=== PATIENT | female | born 1950 | race Caucasian/White ===

== ENCOUNTER 2024-03-18 09:16 | Observation (INO) ==
--- NOTE | 2024-01-25 12:32 | PAT Medication Instructions ---
Medication Instructions Date of Service January 25, 2024 Home Medications apixaban 5 mg tablet (Eliquis) 5 mg PO BID calcium carbonate 600 mg PO QAM inulin 2 gram chewable tablet (Fiber Gummies) 0 g PO DAILY levothyroxine 88 mcg tablet 88 mcg PO QAM paroxetine HCl 30 mg tablet 30 mg PO QAM MEDICATION INSTRUCTIONS: ASK your prescriber and surgeon apixaban 5 mg tablet (Eliquis) 5 mg PO BID (for spinal anesthesia: will need to hold Eliquis/apixaban at least 72 hours prior to surgery) DO NOT take the morning of surgery calcium carbonate 600 mg PO QAM inulin 2 gram chewable tablet (Fiber Gummies) 0 g PO DAILY Take morning of surgery With a small sip of water, OTHERWISE NOTHING TO EAT OR DRINK AFTER MIDNIGHT: levothyroxine 88 mcg tablet 88 mcg PO QAM paroxetine HCl 30 mg tablet 30 mg PO QAM Other Notes If you have any questions please call us at [phone] or [phone] or [phone] or [phone]
--- NOTE | 2024-02-11 10:31 | Anesthesiology Consultation ---
Date of Service February 11, 2024 Assessment & Plan (1) Encounter for pre-operative examination: - Infectious disease screening: Per assessment on 02/11/24: No known recent infectious disease contacts or current infectious disease symptoms. - Outpatient joint assessment: Pt currently scheduled for inpatient pathway. If surgeon requests review for outpatient joint pathway, patient is not recommended candidate for outpatient joint program from anesthesia standpoint based on available information. - Pulmonary note (01/08/24): "Received a request for this pt to have a total knee replacement by Dr Ibarra and if holding her Eliquis for 3 days [address] is sufficient[address] Dr Hernandes reviewed Dr Ibarra's note and the pt's chart and verbally said she is cleared and to hold the Eliquis 3 days prior to surgery and restart the day after." Chart Review Chart Review: Acceptable Risk for Surgery and Patient seen in Pre Admission Testing Teaching & Discussion Pre-Anesthesia Teaching/Discussion Notes: Instructed NPO after midnight before surgery,except medications with 15 cc of water. Medication instructions provided according to the PAT guidelines. History Surgery Operation Date: 03/11/24 10:20 Proposed Procedures p Left Total Knee Arthroplasty - Julio Ibarra, DO Height/Weight Height: 5 ft 3 in Weight: 85.7 kg Allergies Allergy/AdvReac Type Severity Reaction Status Date / Time No Known Drug Allergies Allergy Unknown NONE Verified 01/25/24 10:41 Medications Home Medications Medication Instructions Recorded Confirmed Last Taken apixaban 5 mg tablet (Eliquis) 5 mg PO BID 01/25/24 01/25/24 Unknown calcium carbonate 600 mg PO QAM 01/25/24 01/25/24 Unknown inulin 2 gram chewable tablet 0 g PO DAILY 01/25/24 01/25/24 Unknown (Fiber Gummies) levothyroxine 88 mcg tablet 88 mcg PO QAM 01/25/24 01/25/24 Unknown paroxetine HCl 30 mg tablet 30 mg PO QAM 01/25/24 01/25/24 Unknown Past Medical History Medical History Anxiety High cholesterol Per records, patient denies History of pulmonary embolism (04/2023) Taking Eliquis Hypothyroid Obesity Osteoarthritis Exercise / Class Metabolic Activity II 4-5 Yardwork/Stairs/Walk up hill (one FS: No CP, no SOB) Past Family History Family History Other Heart disease Past Surgical History Surgical History History of colonoscopy History of tubal ligation Past Anesthesia History No Hx of Anesthesia Complications and No Family Hx of Anesthesia Complications History of PONV No Hx of PONV and No Hx of Motion Sickness Social History Smoking Status: Never smoker Do You Dip or Chew Tobacco: No Hx Alcohol Use: No Hx Substance Use: No substance use type: does not use Review of Systems Patient denies chest pain, shortness of breath, dyspnea on exertion, fever, chills, cough, wheezing. Physical Exam Vital Signs BP 124/74 P 73 TEMP 97.7 SP02 95%RA RESP 18 Physical Full cervical extension range of motion. Full TMJ range of motion. TMD 3 finger breaths Mallampati Score 1 Dentition: intact, + crown Lungs: clear throughout to auscultation Cardiac: regular rate and rhythm, no murmurs noted Spine: normal Carotid arteries: negative bruit Extremities: trace non-pitting LE edema Lab Results Anesthesia Preop Results Results Anesthesia Widget: WBC 5.76 K/ul (4.8-10.8) 02/11/24 Hgb 13.0 g/dl (12.0-16.0) 02/11/24 Hct 39.6 % (37.0-47.0) 02/11/24 Plt 204 K/uL (130-400) 02/11/24 Na 139 mmol/L (136-145) 02/11/24 K 4.2 mmol/L (3.5-5.1) 02/11/24 Cl 108 mmol/L (98-107) H 02/11/24 CO2 27 mmol/L (21-32) 02/11/24 BUN 20 mg/dl (6-23) 02/11/24 Creat 0.76 mg/dl (0.6-1.2) 02/11/24 Glucose Level 87 mg/dl (70-99(Fasting)) 02/11/24 PT 10.8 Seconds (9.0-12.0) 02/11/24 PTT 26 Seconds (21-31) 02/11/24 INR 1.0 (0.9-1.1) 02/11/24 Blood Type A Positive 02/11/24 Antibody Screen NEGATIVE 02/11/24 Testing Electrocardiogram Date: 02/11/24 NSR at 69bpm. LAD. Low voltage QRS. NS ST/TWA. Chest X-Ray Date: 02/11/24 FINDINGS: No lines and tubes are seen. The cardiomediastinal silhouette is no rmal. The lungs are clear. No evidence of pleural effusion or pneumothorax. IMPRESSION: No acute chest disease. Echocardiogram Date: 11/18/23 LVEF 55-59%. LV wall motion is normal. Grade 1 diastolic dysfunction. Mild AV sclerosis. Mild MR/TR. Normal right atrial pressure of 3 mmHg. Estimated PASP 30 mmHg.
--- NOTE | 2024-03-10 07:22 | History & Physical Report ---
Date of Service March 10, 2024 Assessment & Plan (1) Osteoarthritis of left knee: We will proceed with a left total knee arthroplasty. Postoperatively she will be started on Eliquis for DVT prophylaxis and kept overnight in the hospital for postop medical management. She plans to use Exablox upon discharge. History of Present Illness Chief Complaint: Osteoarthritis left knee. Primary Care Provider: Self, Referred Georgiana is a pleasant 73-year-old female who has been dealing with chronic increasing left knee pain. She has been seeing one of my partners. Initial x- rays from a year and half ago did show some mild medial compartmental arthritis. She then had an MRI in March 2023, which shows some meniscal tearing. She has been trying conservative treatment. Unfortunately, the conservative treatments are no longer helping. Follow-up x-rays have shown worsening medial compartment arthritis of the left knee. After failing conservative treatment, she has elected proceed with a left total knee arthroplasty. Allergies Allergy/AdvReac Type Severity Reaction Status Date / Time No Known Drug Allergies Allergy Unknown NONE Verified 01/25/24 10:41 Home Medications Medication Instructions Recorded Confirmed Type apixaban 5 mg tablet (Eliquis) 5 mg PO BID 01/25/24 01/25/24 History calcium carbonate 600 mg PO QAM 01/25/24 01/25/24 History inulin 2 gram chewable tablet 0 g PO DAILY 01/25/24 01/25/24 History (Fiber Gummies) levothyroxine 88 mcg tablet 88 mcg PO QAM 01/25/24 01/25/24 History paroxetine HCl 30 mg tablet 30 mg PO QAM 01/25/24 01/25/24 History Past Med/Surg History Problem List (Updated 03/10/24 @ 07:21 by Julio Ibarra DO) Osteoarthritis of left knee Encounter for pre-operative examination Medical History Obesity High cholesterol Per records, patient denies History of pulmonary embolism (04/2023) Taking Eliquis Hypothyroid Anxiety Osteoarthritis Surgical History History of tubal ligation History of colonoscopy Family History Other Heart disease Social History Smoking Status: Never smoker Do You Dip or Chew Tobacco: No; Hx Alcohol Use: No Hx Substance Use: No Preferred Language: Citizen Of [place] Communication Ability: Effective Nuisance Animal Damage Control Agent Required: No Beliefs That Will Affect Care: None Current Living Situation: Spouse Current Living Situation Comment: and dogs Feels Safe at Home: Yes Assistive Devices: Glasses Review of Systems All systems reviewed & are unremarkable except as noted in HPI & below. Physical Exam Physical examination of the left knee shows a slight varus deformity. Tenderness palpation of the distal medial femoral condyle and over the medial joint line.. Constitutional WD/WN, vitals as above Eyes PERRL, conjunctivae normal, anicteric sclerae ENMT external ear and nose normal, oropharynx normal Neck trachea midline, no thyromegaly Respiratory normal respiratory effort Cardiovascular RRR, no murmur, no edema Gastrointestinal (Abdomen) normal bowel sounds, soft, nontender, no hepatosplenomegaly Psychiatric A+Ox3, euthymic affect Results & Data Results & Data Laboratory Results . Diagnostic Findings X-rays of the left knee show medial compartment arthritis with joint space narrowing osteophyte formation and near [id number] tubulation.. PG Care Time/CCT Total # of Minutes Spent Total Time Spent with Patient: Total time spent is greater than 50% in coordination of care (as documented) at patient's floor/unit and/or counseling patient: Coding Level of Care Code None Diagnoses Osteoarthritis of left knee M17.12
--- NOTE | 2024-03-16 16:35 | History & Physical Report ---
Date of Service March 16, 2024 Assessment & Plan (1) Osteoarthritis of left knee: We will proceed with a left total knee arthroplasty. Postoperatively she will be started on Eliquis for DVT prophylaxis and kept overnight in the hospital for postop medical management. She plans to use CardKill upon discharge. History of Present Illness Chief Complaint: Osteoarthritis left knee. Primary Care Provider: Self, Referred Georgiana is a pleasant 73-year-old female who has been dealing with chronic increasing left knee pain. She has been seeing one of my partners. Initial x- rays from a year and half ago did show some mild medial compartmental arthritis. She then had an MRI in March 2023, which shows some meniscal tearing. She has been trying conservative treatment. Unfortunately, the conservative treatments are no longer helping. X-rays have shown worsening osteoarthritis of the left knee. After failing conservative treatment, she has elected to proceed with a left total knee arthroplasty. Allergies Allergy/AdvReac Type Severity Reaction Status Date / Time No Known Drug Allergies Allergy Unknown NONE Verified 01/25/24 10:41 Home Medications Medication Instructions Recorded Confirmed Type apixaban 5 mg tablet (Eliquis) 5 mg PO BID 01/25/24 01/25/24 History calcium carbonate 600 mg PO QAM 01/25/24 01/25/24 History inulin 2 gram chewable tablet 0 g PO DAILY 01/25/24 01/25/24 History (Fiber Gummies) levothyroxine 88 mcg tablet 88 mcg PO QAM 01/25/24 01/25/24 History paroxetine HCl 30 mg tablet 30 mg PO QAM 01/25/24 01/25/24 History Past Med/Surg History Problem List Osteoarthritis of left knee Medical History Obesity High cholesterol Per records, patient denies History of pulmonary embolism (04/2023) Taking Eliquis Hypothyroid Anxiety Osteoarthritis Surgical History History of tubal ligation History of colonoscopy Family History Other Heart disease Social History Smoking Status: Never smoker Do You Dip or Chew Tobacco: No; Hx Alcohol Use: No Hx Substance Use: No Preferred Language: [place] Communication Ability: Effective Topper Packer Required: No Beliefs That Will Affect Care: None Current Living Situation: Spouse Current Living Situation Comment: and dogs Feels Safe at Home: Yes Assistive Devices: Glasses Review of Systems All systems reviewed & are unremarkable except as noted in HPI & below. Physical Exam On physical examination left knee, there is tenderness palpation of the distal medial femoral condyle there is no effusion. There is a slight varus deformity.. Constitutional WD/WN, vitals as above Eyes PERRL, conjunctivae normal, anicteric sclerae ENMT external ear and nose normal, oropharynx normal Neck trachea midline, no thyromegaly Respiratory normal respiratory effort Cardiovascular RRR, no murmur, no edema Gastrointestinal (Abdomen) normal bowel sounds, soft, nontender, no hepatosplenomegaly Psychiatric A+Ox3, euthymic affect Results & Data Results & Data Laboratory Results . Diagnostic Findings X-rays of the left knee show advanced osteoarthritis with joint space narrowing, osteophyte formation, and [id number] articulation. PG Care Time/CCT Total # of Minutes Spent Total Time Spent with Patient: Total time spent is greater than 50% in coordination of care (as documented) at patient's floor/unit and/or counseling patient: Coding Level of Care Code None Diagnoses Osteoarthritis of left knee M17.12
[~2024-03-18 09:16] MED LIST: ACETAMINOPHEN 500 MG TAB PO SCH; FAMOTIDINE 20 MG TAB PO SCH; GABAPENTIN 300 MG CAP PO SCH; LR 500ML BOLUS, THEN 15ML/HR IV SCH; LR 60ML/HR IV SCH; ROPIV 0.5% 246mg, Ketorolac 30mg, EPINEPHrine 0.5mg in NSS INFIL SCH; ROPIVACAINE 0.5% 5 MG/ML 30 ML VIAL ONE; TRANEXAMIC ACID 1,000 MG **IV Intra-op IV SCH; TRANEXAMIC ACID 1,000 MG **IV Pre-op IV SCH; ceFAZolin 2000MG 2,000 MG/15 ML SYR IV SCH; dexAMETHasone**PF** 10 MG/ML VIAL IV SCH
[2024-03-18] MEDS: LR 500ML BOLUS, THEN 15ML/HR IV SCH (09:56)
[2024-03-18] MEDS: dexAMETHasone**PF** 10 MG/ML VIAL IV SCH (09:57)
[2024-03-18] MEDS: ACETAMINOPHEN 500 MG TAB PO SCH ×2 (09:57→22:32)
[2024-03-18] MEDS: FAMOTIDINE 20 MG TAB PO SCH (09:57)
[2024-03-18] MEDS: GABAPENTIN 300 MG CAP PO SCH (09:57)
[2024-03-18] MEDS: LR 60ML/HR IV SCH (09:57)
[2024-03-18] MEDS ORDERED: fentaNYL citrate PF 100 MCG/2 ML VIAL IV PRN (11:21)
[2024-03-18] MEDS ORDERED: HYDROmorphone INJ 1 MG/ML SYRINGE IV PRN (11:21)
[2024-03-18] MEDS ORDERED: ATROPINE SULFATE 0.1 MG/ML 10ML SYR IV PRN (11:21)
[2024-03-18] MEDS ORDERED: ePHEDrine sulfate 50 MG/ML AMP IV PRN (11:21)
[2024-03-18] MEDS ORDERED: ONDANSETRON INJ 2 MG/ML 2 ML VIAL IV PRN (11:21)
--- OUTSIDE RECORDS SUMMARY | 2024-03-18 11:37 | External Medical Summary | Summary of Care ---
Author Name Unknown Organization [facility] Address [address] [place] [facility] [place] [address] Phone [phone] Care Team Providers Care Vegetable Picker Name Role Phone Carmen Corrales PA-C Primary Care Provider [phone] Encounter Details Date Type Department Care Team (Late st Contact Info) Description 02/18/2024 Orders Only PATIENT PORTAL DO NOT DELETE THIS DEPT USED BY LES[place] MONTANO [id number] Allergies Active Allergy Reactions Criticality Noted Date Comments Atorvastatin 04/01/2023 Leg edema No Known Drug Allergy 10/20/2001 documented as of this encounter (statuses as of 02/18/2024) Medications Medication Sig Dispensed Refills Start Date End Date Status MULTIVITAMINS PO TABS one tab daily 0 0 03/26/2009 Active CALCIUM 500 +D 500-400 MG-UNIT PO TABS one tablet daily 0 12/12/2009 Active FIBER SELECT GUMMIES PO CHEWIndications:Divert iculosis, sigmoid take 2 gummies daily 60 Tab 5 06/08/2014 Active loratadine (CLARITIN) 10 MG TabletIndications:Carlos rgic rhinitis, unspecified allergic rhinitis type Take 1 Tab by mouth daily. 30 Tab 5 12/19/2015 Active COVID-19 mRNA Vaccine 12 years and above Pfizer 30 MCG/0.3 ML IM SUSP Inject into a large muscle. 0.3 mL 06/09/2023 Active PARoxetine HCl 30 MG Oral Tablet (Paxil)Indications:Pina ic disorder TAKE ONE TABLET BY MOUTH EVERY DAY 90 Tablet 3 08/19/2023 08/18/2024 Active Rosuvastatin Calcium 10 MG Oral Tablet (Crestor)Indications:D yslipidemia, goal LDL below 130 Take 1 Tablet by mouth in the morning. 30 Tablet 2 10/15/2023 Active Apixaban 5 MG Oral Tablet (Eliquis)Indications:P ulmonary embolus (HCC) Take 1 Tablet by mouth in the morning and 1 Tablet before bedtime. 60 Tablet 5 01/15/2024 Active Levothyroxine Sodium 88 MCG Oral Tablet (Levoxyl)Indications:S ubclinical hypothyroidism TAKE ONE TABLET BY MOUTH IN MORNING. TAKE AT LEAST 30 MINUTES PRIOR TO THE FIRST MEAL OF THE DAY. 90 Tablet 1 02/16/2024 02/15/2025 Active documented as of this encounter (statuses as of 02/18/2024) Active Problems Problem Noted Date Diagnosed Date Uterovaginal prolapse 02/03/2018 Dyslipidemia, goal LDL below 130 12/11/2015 Overview: 10 year ASCVD risk 12/11/2015 = 4.9% 10 year ASCVD risk 02/01/2016 = 5.2% 10 year ASCVD risk 02/15/2019 9.7% 10 year ASCVD risk 02/20/2020 = 8.6%, defers statin Diverticulosis, sigmoid 06/08/2014 Overview: On colonoscopy 2013 Subclinical hypothyroidism 03/31/2013 Overview: 04/05: TSH elevated, thyroid antibodies neg 06/05: TSH normal 12/19/15: started on levothyroxine for subclinical hypothyroidism (sx fatigue, leg cramps, weight gain, hot flashes) Panic disorder 05/21/2011 Overview: paxil Severe obesity (BMI 35.0-35.9 with comorbidity) 03/26/2009 documented as of this encounter (statuses as of 02/18/2024) Resolved Problems Problem Noted Date Diagnosed Date Resolved Date Acute respiratory failure with hypoxia 05/11/2023 05/13/2023 Acute pulmonary embolism wit h acute cor pulmonale 05/11/2023 05/13/2023 Acute deep vein thrombosis ( DVT) of tibial vein of right lower extremity 05/11/2023 05/13/2023 Encounter for screening for osteoporosis 02/03/2011 01/28/2017 Overview: Pt declines as not covered by insurance. Will re-eval age 63 FAMILY HX-LYMPHOMA 04/27/2009 7 Overview: dad Menopause 03/15/2003 01/28/2017 documented as of this encounter (statuses as of 02/18/2024) Immunizations Name Administration Dates Next Due COVID-19 mRNA, LNP-s, No Pre serve, 2-Dose Series (Moderna) 10/18/2020,09/20/2020 COVID-19, LNP-s, No Preserve , Darrell-sucrose, Ages 12+ (Pfizer) 03/19/2022 COVID-19, MRNA-LNP, 23-24, P F, 30 MCG/0.3 mL, 12 YRS AND ABOVE, IM (PFIZER-Comirnaty) 06/12/2023 COVID-19, mRNA, LNP-s, PF, B ooster, 100mcg/0.5mg (Moderna) 06/29/2021 Covid-19, Mrna, Lnp-s, Pf, B ivalent, 30 Mcg, IM, 12 yrs and above (Pfizer) 08/05/2022 H1N1 2009 Influenza, IM 12/12/2009 Pneumococcal Conjugate Vacc, 13 Valent (Prevnar) 06/14/2015 Pneumococcal Polysaccharide PPV23 (Pneumovax) 06/08/2014 Seasonal Influenza, PF, 6 M & above, IM , (FluLaval or Fluzone) 05/26/2020,05/21/2019,05/29/2018,06/06 Seasonal Influenza, Quadriva lent Hd (Fluzone Hd) 05/09/2023,05/10/2022,05/25/2021 Seasonal Influenza, Quadriva lent, No Preserve, IM 06/07/2016,06/14/2015 Seasonal Influenza, Split, I IV3, With Preserve, Inj 06/12/2014,06/16/2013,06/17/2012,06/18,12/12/2009 TDAP (age 10 and older)(Boostrix) 09/30/2019 TDAP, Age 7 and older, IM (Adacel) 04/27/2009 Varicella Zoster Vaccine (Adult) 12/07/2014 Zoster Vaccine Recombinant (Shingrix) 02/20/2020 ,09/30/2019 documented as of this encounter Social History Tobacco Use Types Packs/Day Years Used Date Smoking Tobacco: Never Passive Smoke Exposure: Never Smokeless Tobacco: Never Alcohol Use Standard Drinks/Week Comments Not Currently 0 (1 standard drink = 0.6 oz pur e alcohol) 1 glass of wine/month AUDIT-C Answer Date Recorded Frequency of Alcohol Consumption Monthly or less 02/20/2020 Average Number of Drinks 1 or 2 020 Frequency of Binge Drinking Not on file 01/23 PHQ-2 Answer Date Recorded PHQ Adult Total Score 0 04/01/2023 Exercise Vital Sign Answer Date Recorde d On average, how many days pe r week do you engage in moderate to strenuous exercise (like a brisk walk)? 0 days 02/21/2021 On average, how many minutes do you engage in exercise at this level? 0 min 02/21/2021 Hunger Vital Sign Answer Date Recorded Within the past 12 months, y ou worried that your food would run out before you got the money to buy more. Never true 04/01/20 23 Within the past 12 months, t he food you bought just didn't last and you didn't have money to get more. Never true 04/01/2023 Childcare Answer Date Recorded Do you feel overwhelmed with taking care of a child, family member or friend? No 04/01/2023 Does your family need help f inding childcare? (Household - for ages 0-17 years) Not on file 04/01/2023 Clothing Answer Date Recorded Have you been unable to get clothing when it was really needed? No 04/01/2023 Is your family able to get c lothes or diapers when needed? (Household - for ages 0-17 years) Not on file 04/01/2023 Personal Safety Answer Date Recorded Do you feel unsafe or have concerns for your saf ety? No 05/11/2023 Do you have concerns for you r family's safety? (Household - for ages 0-17 years) Not on file 05/11/2023 Utilities Answer Date Recorded Do you have trouble paying y our heating, water, or electric bill? No 05/11/2023 Is your family able to pay t he heat, water, or electric bill? (Household - for ages 0-17 years) Not on file 05/11/2023 Does your family have access to good internet? (Household - for ages 0-17 years) Not on file 05/11/2023 Employment Status Answer Date Recorded Are you unemployed or without regular income? No 04/01/2023 Does the household have a re gular source of income? (Household - for ages 0-17 years) Not on file 04/01/2023 Social Connections Answer Date Recorded How often do you feel lonely or isolated from th ose around you? Never 04/01/2023 Financial Resource Strain Answer Date R ecorded Do you have any trouble payi ng for your medications, or do you think you might in the future? No 04/01/2023 Does your family have troubl e paying for medicine? (Household - for ages 0-17 years) Not on file 04/01/2023 Transportation Needs Answer Date Record ed READ ONLY Do you have troubl e getting a ride to medical visits or work? Never True 05/11/2023 Does your family have a hard time getting a ride to doctors visits? (Household - for ages 0-17 years) Not on file 05/11/2023 Has lack of transportation k ept you from medical appointments, meetings, work, or from getting things needed for daily living? Check all that apply. (Adult - for ages 18 years and over) Not on file 05/11/2023 Do you (or your family) have trouble finding or paying for a ride (transportation)? (Household - for ages 0-17 years) Not on file 05/11/2023 Housing Stability Answer Date Recorded Do you currently live in a s helter or have no steady place to sleep at night? No 05/11/2023 READ ONLY Do you think you a re at risk of becoming homeless? No 05/11/2023 Does your family worry about paying for your home or becoming homeless? (Household - for ages 0-17 years) Not on file 0 05/11/2023 Are you homeless or worried that you might be in the future? (Adult - for ages 18 years and over) Not on file Are you (or your family) dulce eless or worried that you might be in the future? (Household - for ages 0-17 years) Not on file Food Insecurity Answer Date Recorded Do you need food for this week? No 05/11/2023 Are you able to get enough f ood for your family? (Household - for ages 0-17 years) Not on file 05/11/2023 Does your family need food t his week? (Household - for ages 0-17 years) Not on file 05/11/2023 Do you always have enough fo od for your family? (Household - for ages 0-17 years) Not on file 05/11/2023 Sex and Gender Information Value Date Recorded Sex Assigned at Female 02/15/2019 1:03 PM EDT Gender Identity Female 02/15/2019 1:03 PM EDT Sexual Orientation Straight 02/15/2019 1: 03 PM EDT Job Start Date Occupation Industry Not on file Not on file Not on file documented as of this encounter Functional Status Functional Status Response Date of Assess ment Are you deaf or do you have serious difficulty h earing? No 05/11/2023 Are you blind or do you have serious difficulty seeing, even when wearing glasses? Yes 05/11/2023 Do you have serious difficul ty walking or climbing stairs? (5 years old or older) No 05/11/2023 Do you have difficulty dress ing or bathing? (5 years old or older) No 05/11/2023 Because of a physical, menta l, or emotional condition, do you have difficulty doing errands alone such as visiting a doctor s office or shopping? (15 years old or older) No 05/11/20 Cognitive Status Response Date of Assessm ent Because of a physical, menta l, or emotional condition, do you have serious difficulty concentrating, remembering, or making decisions? (5 years old or older) No 05/11/2023 documented as of this encounter Plan of Treatment Upcoming Encounters Date Type Department Care Team (Late st Contact Info) Description 04/04/2024 11:20 AM EDT Office Visit [facility] [place] [address] [phone] Carmen Corrales PA-C [address] [phone] 04/06/2024 9:40 AM EDT Office Visit Pulmonary Medicine Denise Castillo [address] [phone] Hernandez Hernandes MD [address] [phone] Scheduled Procedures Name Priority Associated Diagnoses Date/Ti me COLONOSCOPY FLEXIBLE PROXIMA L DIAGNOSTIC Recall History of colonic polyps Health Maintenance Due Date Last Done Comments COVID-19 Vaccine ( season) 2023 06/12/2023, 08/05/2022, 03/19/2022, Additional history exists Depression Screening 04/01/2024 04/01/2023, 12/19/19 16 TSH 04/01/2024 04/01/2023, 03/24, 02/17/2022, Additional history exists Colonoscopy 03/07/2025 03/07/2020, 02/21, 01/18/2014, Additional history exists DXA Scan 02/28/2027 02/28/2022, 08/12/2016 DTaP,Tdap,and Td Vaccines (3 - Td or Tdap) 09/30/2029 09/30/2019, 04/27/2009 Pneumococcal Vaccine: 65+ Years Completed 06/14/2015, 06/08/2014 Zoster Vaccines Completed 02/20/2020, 02/2020, 12/07/2014 RETIRED - COLONOSCOPY-EVERY 5 YRS AGES 18-100 Discontinued 03/07/2020, 03/07/2020, 01/18/2014, Additional history exists Influenza Vaccine (FLU shot) Completed 05/09/2023, 05/10/2022, 05/25/2021, Additional history exists GARDASIL-HPV IMMUNIZATION SERIES Aged Out No longer eligible based on patient's age to complete this topic Hepatitis B Aged Out No longer eligi ble based on patient's age to complete this topic MENINGOCOCCAL (MENACTRA/MENVEO) Aged Out No longer eligible based on patient's age to complete this topic documented as of this encounter Medical Devices Not on filedocumented as of this encounter Advance Directives * Full Code (Latest Code Status on File) Date Activated Date Inactivated Comments 05/11/2023 1:53 PM 05/13/2023 8:11 PM This order r eflects the patients wishes and were consensually agreed upon. Question Answer Comments Discussion of Advance Directives occurred with: Patient Care Teams Vegetable Picker Relationship Specialty Start Date End Date Carmen Corrales PA-C [address] [phone] PCP - General Physician Drum Attendant 02/16/23 documented as of this encounter
--- OUTSIDE RECORDS SUMMARY | 2024-03-18 11:37 | External Medical Summary | Summary of Care ---
Author Name Unknown Organization [facility] Address [address] [facility] [place] [address] Phone [phone] Care Team Providers Care Slash Trimmer Name Role Phone Dasha Inman PA-C Primary Care Provider [phone] Reason for Visit * Reason Comments Medication Refill Encounter Details Date Type Department Care Team (Late st Contact Info) Description 02/15/[address] [place] [phone] Hi Muhammad Jr., DO [address] [place] [id number] Subclinical hypothyroidism Allergies Active Allergy Reactions Criticality Noted Date Comments Atorvastatin 04/01/2023 Leg edema No Known Drug Allergy 10/20/2001 documented as of this encounter (statuses as of 02/16/2024) Medications Medication Sig Dispensed Refills Start Date End Date Status MULTIVITAMINS PO TABS one tab daily 0 0 03/26/2009 Active CALCIUM 500 +D 500-400 MG-UNIT PO TABS one tablet daily 0 12/12/2009 Active FIBER SELECT GUMMIES PO CHEWIndications:Dive rticulosis, sigmoid take 2 gummies daily 60 Tab 5 06/08/2014 Active loratadine (CLARITIN) 10 MG TabletIndications:Al lergic rhinitis, unspecified allergic rhinitis type Take 1 Tab by mouth daily. 30 Tab 5 12/19/2015 Active COVID-19 mRNA Vaccine 12 years and above [email or web address] 30 MCG/0.3 ML IM SUSP Inject into a large muscle. 0.3 mL 06/09/2023 Active PARoxetine HCl 30 MG Oral Tablet (Paxil)Indications:P anic disorder TAKE ONE TABLET BY MOUTH EVERY DAY 90 Tablet 3 08/19/2023 08/18/2024 Active Rosuvastatin Calcium 10 MG Oral Tablet (Crestor)Indications :Dyslipidemia, goal LDL below 130 Take 1 Tablet by mouth in the morning. 30 Tablet 2 10/15/2023 Active Apixaban 5 MG Oral Tablet (Eliquis)Indications :Pulmonary embolus (HCC) Take 1 Tablet by mouth in the morning and 1 Tablet before bedtime. 60 Tablet 5 01/15/2024 Active Levothyroxine Sodium 88 MCG Oral Tablet (Levoxyl)Indications :Subclinical hypothyroidism TAKE ONE TABLET BY MOUTH IN MORNING. TAKE AT LEAST 30 MINUTES PRIOR TO THE FIRST MEAL OF THE DAY. 90 Tablet 1 02/16/2024 02/15/2025 Active Levothyroxine Sodium 88 MCG Oral Tablet (Levoxyl)Indications :Subclinical hypothyroidism TAKE ONE TABLET BY MOUTH IN MORNING. TAKE AT LEAST 30 MINUTES PRIOR TO THE FIRST MEAL OF THE DAY. 90 Tablet 1 08/19/2023 02/15/2024 Discontinue d(Refill) documented as of this encounter (statuses as of 02/16/2024) Active Problems Problem Noted Date Diagnosed Date [...] as of this encounter (statuses as of 02/16/2024) Resolved Problems Problem Noted Date Diagnosed Date [...] as of this encounter (statuses as of 02/16/2024) Immunizations Name Administration Dates Next Due COVID-19 [...] 04/01/2023 Does the household have a re lar source of income? (Household - for ages [...] No 05/11/2023 documented as of this encounter Miscellaneous Notes * Telephone Encounter - Kristine Williamson RPh - 02/16/2024 7:42 AM EDT Signed Prescriptions: Disp Refills Levothyroxine Sodium 88 MCG Oral Tablet (L*90 Tab*1 Sig: TAKE ONE TABLET BY MOUTH IN MORNING. TAKE AT LEAST 30 MINUTES PRIOR TO THE FIRST MEAL OF THE DAY.Authorizing Provider: DASHA INMAN User: KRISTINE WILLIAMSON * Telephone Encounter - Kristine Williamson RPh - 02/16/2024 7:40 AM EDT Protocol passed, but pt is due for TSH soon. Appropriate labs ordered. Patient may obtain these labs with next routine blood work. Thank you, Kristine Williamson, KishoreD Clinical Pharmacist [facility] (formally Telepharmacy) [phone] 02/16/2024 7:41 AM documented in this encounter Plan of Treatment Upcoming Encounters Date Type Department Care Team (Late st Contact Info) Description 04/04/2024 11:20 AM EDT Office Visit [facility]ise Xie [address] [phone] Dasha Inman PA-C [address] [address] 04/06/2024 9:40 AM EDT Office Visit Pulmonary Medicine Denise Castillo [address] [phone] Hernandez Hernandes MD [address] [address] Scheduled Orders Name Type Priority Associated Diagnoses Orde r Schedule TSH WITH FREE T4 IF INDICATED Lab Routine Subclinical hypothyroidism Expected: 02/23/2024 (Approximate), Expires: 02/15/2025 Scheduled Procedures Name Priority Associated Diagnoses Date/Ti [...] Not on filedocumented as of this encounter Visit Diagnoses Diagnosis Subclinical hypothyroidism Other specified acquired hypothyroidism documented in this encounter Advance Directives * Full Code (Latest Code Status on File) Date Activated Date Inactivated Comments 05/11/2023 1:53 PM 05/13/2023 8:11 PM This order r eflects the patients wishes and were consensually agreed upon. Question Answer Comments Discussion of Advance Directives occurred with: Patient Care Teams Slash Trimmer Relationship Specialty Start Date End Date Dasha Inman PA-C [address] [facility] [place] [phone] PCP - General Physician Human Resources Leader 02/16/23 documented as of this encounter
--- NOTE | 2024-03-18 11:42 | History & Physical Bridge Note ---
Date of Service March 18, 2024 History & Physical Bridge Note I have examined the patient, reviewed the History & Physical and in the interval since the performance of the History & Physical I have noted the following changes of clinical significance: no changes noted
[2024-03-18] MEDS ORDERED: fentaNYL citrate PF 100 MCG/2 ML VIAL ONE (12:05)
[2024-03-18] MEDS ORDERED: MIDAZOLAM HCL 1 MG/ML 2ML VIAL ONE (12:05)
[2024-03-18] MEDS: TRANEXAMIC ACID 1,000 MG **IV Pre-op IV SCH (12:29)
[2024-03-18] MEDS: ceFAZolin 2000MG 2,000 MG/15 ML SYR IV SCH ×2 (12:43→19:46)
[2024-03-18] MEDS: ROPIV 0.5% 246mg, Ketorolac 30mg, EPINEPHrine 0.5mg in NSS INFIL SCH (13:15)
[2024-03-18] MEDS: ORTHO JOINT ANESTHETIC ONE (13:15)
[2024-03-18] MEDS: TRANEXAMIC ACID 1,000 MG **IV Intra-op IV SCH (13:41)
--- NOTE | 2024-03-18 13:43 | Operative Report ---
PG Post Operative Report Pre & Post Diagnosis Operation Date: 03/18/24 12:00 Pre-Op Diagnosis: Left Knee Degenerative Joint Disease Post-Op Diagnosis: Left Knee Degenerative Joint Disease I identified the patient and participated in the time-out.: Yes Procedure Operation Date: 03/18/24 12:00 Actual Procedures p Left Total Knee Arthroplasty(Left) - Julio Ibarra DO Surgeon Julio Ibarra DO Documentation Engineer Julio Perkins PA-C Estimated Blood Loss 30 Findings Consistent with Post-Op Diagnosis Specimens Left femoral tibial bone Description of Procedure Implants used: I used a Kiel Persona total knee arthroplasty system with a size 7 narrow CR femur, D tibia, 28 oval patella, and a size 14 medial congruent polyethylene bearing. All components were cemented in place with Biomet cement. Georgiana arrived [facility] for the above procedure. She was seen in the preoperative holding area and the operative extremity was identified and signed. She was given a preoperative antibiotic, TXA, a spinal anesthetic and an adductor nerve block. She was taken back to the operating room and laid on the table in supine position. She was given basic sedation. The operative knee was then prepped and draped in sterile fashion. A timeout was done, and the patient and the operative extremity was properly identified. A midline incision was made directly over the patella. Dissection was taken down to the extensor mechanism. A subvastus arthrotomy was used. The medial retinaculum was released and the fat pad was mostly excised. The knee was flexed and the ACL, PCL, and meniscus were removed. A drill was sent down the center of the femoral canal followed by an intramedullary elizabeth. Off that elizabeth a distal femoral cutting block was placed. 9 mm was resected off the distal femur at 5 of valgus. A posterior referencing AP sizing guide was then placed on the distal femur. The femur measured to be a size 7. 2 drill holes were placed in 3 of external rotation. A 4-in-1 cutting block was then impacted into place. Anterior, posterior, and chamfer cuts were then made. The proximal tibia was then exposed. An external tibial alignment guide was placed. A tibial cut guide was then anchored in place and the proximal tibia was then resected. The posterior aspect of the knee was then opened up and any additional meniscus fragments and osteophytes were removed. The tibia measured to be a size D. The tibial plate was then placed in the appropriate rotation and the tibia was drilled and punched. Trial components were then placed. I used a size 14 medial congruent polyethylene insert. The knee was brought through a full range of motion and felt to be stable. The peg holes for the femoral component were then drilled. The patella was then everted and 9 mm was resected off the posterior aspect of the patella. The patella measured to be a size 28 oval. 3 peg holes were then drilled. A trial patella was placed. The knee was once again brought through a full range of motion and felt to be stable. Trial components were then removed. The surrounding soft tissues were injected with 100 cc of an orthopedic pain control cocktail. All components were then cemented into place with Biomet cement. The final polyethylene insert was then snapped into place. Once cement was dry the tourniquet was deflated. Hemostasis was obtained. A dilute betadyne lavage was then done for 3 minutes. The joint was then irrigated with normal saline solution. The subvastus arthrotomy was then closed with #1 Vicryl suture. The skin was closed with 2-0 Vicryl, 3-0V lock suture, and janneth. A soft compressive dressing was placed. She was then transferred to a hospital bed and taken to the postanesthesia care unit in stable condition. She tolerated the procedure well. Julio Perkins PA-C, was present for the entire procedure. He was critical for patient positioning, prepping, draping, retraction exposure, wound closure and application of sterile dressing. I attest to the content of the Intraoperative Record and any orders documented therein. Any exceptions are noted below.
[2024-03-18] MEDS ORDERED: PHENYLEPHRINE 100MCG/ML 10ML SYR IV ONE (13:55)
[2024-03-18] MEDS ORDERED: LIDOCAINE 2% 2 ML VIAL/AMP(20MG/ML) INFIL ONE (13:55)
[2024-03-18] MEDS ORDERED: PROPOFOL IV EMULSION 10 MG/ML 20 ML VIAL IV ONE (13:55)
--- NOTE | 2024-03-18 14:28 | Anesthesiology Progress Note ---
Date of Service March 18, 2024 Anesthesia Post Procedure Vital Signs Vital Signs: Temp Pulse Pulse Resp BP Pulse Ox O2 Del Method 03/18/24 14:20 70 14 111/71 96 Room Air 03/18/24 14:10 70 22 94/58 L 97 Oxymask 03/18/24 14:02 36.3 C L 71 18 100/66 97 Oxymask 03/18/24 10:19 36.5 C 69 20 128/69 98 Room Air O2 Flow Rate 03/18/24 14:20 03/18/24 14:10 5 03/18/24 14:02 5 03/18/24 10:19 Pain Intensity Left Knee: Pain Intensity: 3 Transfer of Care Handoff Completed per policy Notes Mental Status: alert / awake / arousable and participated in evaluation Patient Amnestic to Procedure: Yes Nausea / Vomiting: adequately controlled Pain: adequately controlled Airway Patency, RR, SpO2: stable & adequate BP & HR: stable & adequate Hydration State: stable & adequate Anesthetic Complications: no major complications apparent and Pt Satisfied with anesthetic care
[2024-03-18] MEDS ORDERED: bisacodyL 10 MG SUPP PR PRN (15:43)
[2024-03-18] MEDS ORDERED: MAGNESIUM HYDROXIDE SUSP 30 ML UDC PO PRN (15:43)
[2024-03-18] MEDS ORDERED: HYDROmorphone INJ 0.5 MG/0.5 ML SYR IV PRN (15:43)
[2024-03-18] MEDS ORDERED: NALOXONE HCL 0.4 MG/1 ML VIAL/CARP IV PRN (15:43)
[2024-03-18] MEDS ORDERED: METOCLOPRAMIDE HCL INJ 5 MG/ML 2 ML VIAL IV PRN (15:43)
[2024-03-18] MEDS: SODIUM CHLORIDE 0.9% 1,000 ML IV SCH (16:26)
[2024-03-18] MEDS: KETOROLAC TROMETHAMINE 15 MG/ML VIAL IV SCH (16:26)
--- NOTE | 2024-03-18 17:34 | XRay Report ---
XR knee LT 1 or 2V routine CLINICAL HISTORY: post op TKA TECHNIQUE: 2 views of the left knee were obtained. Comparison: Comparison is made to knee radiograph 01/05/2024 FINDINGS: Patient is status post total knee arthroplasty with expected postsurgical changes including soft tiss ue swelling and subcutaneous emphysema. No periarticular lucency or hardware fracture is seen. IMPRESSION: Expected postoperative appearance status post placement of total knee arthroplasty. ACT 112: Negative or not required by law. Electronically signed by: Tomas Calderon M.D. 03/18/2024 5:32 PM
[2024-03-18] MEDS: oxyCODONE HCL IR 5 MG TAB (IMMEDIATE RELEASE) PO PRN (19:43)
[2024-03-18] MEDS: SENNA 8.6 MG TAB PO SCH (19:44)
[2024-03-18] MEDS: DOCUSATE SODIUM 100 MG CAP PO SCH (19:44)
[2024-03-19] MEDS: LEVOTHYROXINE SODIUM 88 MCG TABLET PO SCH (05:20)
[2024-03-19] MEDS: ONDANSETRON INJ 2 MG/ML 2 ML VIAL IV PRN (06:13)
--- NOTE | 2024-03-19 07:49 | Orthopedic Progress Note ---
Date of Service March 19, 2024 Assessment & Plan (1) Status post left knee replacement: Overall she is doing well. She is not having much pain in the left knee. She will be seen by physical therapy today for ambulation and range of motion exercises. She is on Eliquis for DVT prophylaxis. The nursing staff can change her dressing after physical therapy. She can be discharged home later today. She will follow-up with orthopedics in 2 weeks. Rupal Stoner was seen and examined at bedside this morning. Overall she is doing well. She is not having much pain in the left knee. She has been up and ambulating to the bathroom. She has no complaints.. Review of Systems All systems reviewed & are unremarkable except as noted in HPI & below. Physical Exam On physical examination left knee, the dressing is clean and dry. Her leg is out full extension. She has active dorsiflexion plantarflexion of her left ankle.. Results & Data Results & Data Laboratory Results . Diagnostic Findings Postoperative x-rays of the left knee show the prosthesis to be in anatomic alignment without any evidence of fracture complication, or loosening.. PG Care Time/CCT Total # of Minutes Spent Total Time Spent with Patient: Total time spent is greater than 50% in coordination of care (as documented) at patient's floor/unit and/or counseling patient: Coding Level of Care Code 15234 Post Operative Follow-Up Diagnoses Status post left knee replacement Z96.652
--- NOTE | 2024-03-19 07:50 | Discharge Summary ---
Date of Service March 19, 2024 Admission HPI (Per Admitting) Georgiana is a pleasant 73-year-old female who has been dealing with chronic increasing left knee pain. She has been seeing one of my partners. Initial x- rays from a year and half ago did show some mild medial compartmental arthritis. She then had an MRI in March 2023, which shows some meniscal tearing. She has been trying conservative treatment. Unfortunately, the conservative treatments are no longer helping. X-rays have shown worsening osteoarthritis of the left knee. After failing conservative treatment, she has elected to proceed with a left total knee arthroplasty. Admission Exam (Per Admitting) On physical examination left knee, there is tenderness palpation of the distal medial femoral condyle there is no effusion. There is a slight varus deformity.. Principal Diagnosis Same as "Discharge Diagnosis" noted below under Discharge Instructions. Discharge Exam On physical examination left knee, the dressing is clean and dry. Her leg is out full extension. She has active dorsiflexion plantarflexion of her left ankle.. Discharge Data Procedures Performed Operation Date: 03/18/24 12:00 Actual Procedures p Left Total Knee Arthroplasty(Left) - Julio Ibarra DO Ordered Studies 03/18/24 05:00 US - OR guided needle placemen Routine Hospital Course (1) Status post left knee replacement: On March 18, 2024 Georgiana arrived at [facility] and underwent a left knee replacement without complication. She had a spinal anesthetic. Postoperatively she was started on Eliquis for DVT prophylaxis and transferred to the general orthopedic floors. Her hospital course was uneventful. On postop day #1, her vital signs were stable and her pain was well-controlled. She was able to participate well with physical therapy doing ambulation and range of motion exercises. She was then discharged home. She will follow-up with orthopedics in 2 weeks. PG Care Time/CCT Total # of Minutes Spent Total Time Spent with Patient: Total time spent is greater than 50% in coordination of care (as documented) at patient's floor/unit and/or counseling patient: Discharge Plan Discharge Items Patient Disposition: Home - Self-Care Reason For Visit: Left Knee Degenerative Joint Disease Discharge Diagnosis: Left knee replacement Activity: Per Instructions section Non-emergency contact: Surgeon Call non-emergency contact if: your wound has increased redness and your wound has increased drainage Follow-up/Referrals: SELF,REFERRED [Primary Care Provider] - Diet: Regular Addtl Attending Provider Instructions: Activity and Therapy Recommendations: * If you are using [facility] then therapy will be provided at your home until they feel you have accomplished all of your goals. * If you are using [facility] then Physical Therapy will be provided until they feel you are ready to start Outpatient Physical Therapy. * If you are not using home therapy then Outpatient Physical Therapy should start about 3-5 days from your day of surgery. Therapy will last about 6-10 weeks * It is important not to put a pillow under your knee when you are relaxing or sleeping. It is just as important to make sure you are getting your knee perfectly straight as it is to regain your knee bend. * You were shown a series of exercises in the hospital. Do these exercises three times each day including the exercises you were shown in physical therapy. * Get up and walk several times each day. For the first four weeks, try not to stand or walk for more than one hour at a time. If you do stand or walk for more than one hour, you will not hurt anything, but your leg will likely swell. * As you feel comfortable, you may change from the walker or crutches to a cane and then to independent walking. Medications: * Narcotic You will likely be sent home from the hospital with a prescription for the narcotic pain medication that worked best throughout your stay. * Cefadroxil -take the antibiotic twice a day for 10 days to help prevent infection. * Eliquis -continue taking your Eliquis as prescribed. * Other medications may be prescribed for specific circumstances. If you have any questions, please call the office at . * Resume previous home medications unless otherwise instructed TEDs/Elastic Stockings: The white elastic stockings help limit swelling and prevent blood clots from forming in your legs.~ The more you wear them, the more they work. Wear them for six weeks. Dressing Care: The dressing can be changed after physical therapy on postop day #1. Daily dry dressing changes for a few days, especially if the incision is still draining some. If the incision is not draining then you may leave the janneth open to air. If there is a little bit of drainage or if the janneth are getting stuck on your clothing then cover the incision with a dry dressing. The janneth will be removed at your 2 week follow-up appointment. Showering: You may shower 5 days from the day of surgery as long as the incision is no longer draining. You may shower with the janneth exposed. Let soapy water run over the janneth and pat them dry. Do not scrub or soak the incision. Things To Watch For: * Drainage from the incision site that occurs more than one week after your surgery. * Increased redness at the incision site. * Fever above 102 degrees Fahrenheit. * Unusual chest pain or shortness of breath. * Call [facility] at with any of the above problems Follow-Up Visit: Follow-up with Dr. Ibarra's PA (Julio Perkins) 2-3 weeks after your day of surgery. He will remove your janneth and answer any questions. If you have any additional questions or concerns, Dr Ibarra is usually in the office at the same time and will be available An appointment was probably scheduled when you signed-up for surgery in the office. If you have any questions call Office Instructions: More detailed instructions as well as Frequently Asked Questions were provided in a folder by our office when you signed-up for surgery. Please review these instructions when you get home. If you have any further questions or concerns, please feel free to call the office at [phone] Pending Studies at Discharge: No Stand-Alone Forms: My [facility] Medications and DC Order Prescriptions: New oxycodone 5 mg Tablet 5 mg PO Q4H PRN (Reason: pain) Qty: 30 0RF cefadroxil 500 mg capsule 500 mg PO BID 10 Days Qty: 20 0RF Continued Eliquis 5 mg Tablet 5 mg PO BID levothyroxine 88 mcg Tablet 88 mcg PO QAM calcium carbonate [Caltrate 600] 600 mg calcium (1,500 mg) Tablet 600 mg PO QAM paroxetine HCl 30 mg Tablet 30 mg PO QAM Fiber Gummies 2 gram Tablet,Chewable 0 g PO DAILY Discharge Orders: Discharge Order (Routine); Ordered 03/19/24 Ordered By: Julio Ibarra Admission Data Admit Date/Time: 03/18/24 14:03 Attending Provider: Julio Ibarra Admit Provider: Julio Ibarra Primary Care Provider: SELF,REFERRED Other Providers: Fred Aguilra
[2024-03-19] MEDS: PARoxetine HCL 20 MG TAB PO SCH (09:12)
[2024-03-19] MEDS: dexAMETHasone 4 MG TAB PO SCH (09:12)
[2024-03-19] MEDS: PARoxetine HCL 10 MG TAB PO SCH (09:12)
[2024-03-19] MEDS: MULTIVITAMIN TAB PO SCH (09:13)
[2024-03-19] MEDS ORDERED: APIXABAN 5 MG TABLET PO SCH (14:00)
== END 2024-03-19 12:22 | disposition home health service (06) ==
LOC: 3E 09:16 → ASU 09:16

== ENCOUNTER 2024-08-29 05:04 | Observation (INO) ==
--- NOTE | 2024-08-02 12:29 | PAT Medication Instructions ---
Medication Instructions Date of Service August 02, 2024 Home Medications apixaban 5 mg tablet (Eliquis) 5 mg PO BID calcium carbonate 600 mg PO QAM inulin 2 gram chewable tablet (Fiber Gummies) 0 g PO DAILY levothyroxine 88 mcg tablet 88 mcg PO QAM paroxetine HCl 30 mg tablet 30 mg PO QAM amoxicillin 500 mg tablet 2,000 mg PO UD PRN pre dental MEDICATION INSTRUCTIONS: Continue as directed amoxicillin 500 mg tablet 2,000 mg PO UD PRN pre dental ASK your prescriber and surgeon apixaban 5 mg tablet (Eliquis) 5 mg PO BID (for spinal anesthesia: will need to hold Eliquis/apixaban at least 72 hours prior to surgery) DO NOT take the morning of surgery calcium carbonate 600 mg PO QAM inulin 2 gram chewable tablet (Fiber Gummies) 0 g PO DAILY Take morning of surgery With a small sip of water, OTHERWISE NOTHING TO EAT OR DRINK AFTER MIDNIGHT: levothyroxine 88 mcg tablet 88 mcg PO QAM paroxetine HCl 30 mg tablet 30 mg PO QAM Other Notes If you have any questions please call us at [phone] or [phone] or [phone] or [phone]
--- NOTE | 2024-08-10 09:10 | Anesthesiology Consultation ---
Date of Service August 10, 2024 Assessment & Plan (1) Encounter for pre-operative examination: - Infectious disease screening: Per assessment on 08/10/24- No known recent infectious disease contacts or current infectious disease symptoms. - Outpatient joint assessment: Pt currently scheduled for inpatient pathway. If surgeon requests review for outpatient joint pathway, patient is not recommended candidate for outpatient joint program from anesthesia standpoint based on available information. - S/P Left TKA (03/18/24): SAB, 2 attempts + regional at [facility] - Eliquis instructions: patient made aware that for neuraxial anesthesia, Eliquis needs to be held 72 hours prior to surgery. Patient voiced understanding/will check if okay with prescriber. Chart Review Chart Review: Acceptable Risk for Surgery and Patient seen in Pre Admission Testing Teaching & Discussion Pre-Anesthesia Teaching/Discussion Notes: Instructed NPO after midnight before surgery,except medications with 15 cc of water. Medication instructions provided according to the PAT guidelines. History Surgery Operation Date: 08/29/24 12:00 Proposed Procedures p Left Total Hip Arthroplasty Anterior - Julio Ibarra DO Height/Weight Height: 5 ft 3 in Weight: 87.2 kg Allergies Allergy/AdvReac Type Severity Reaction Status Date / Time No Known Allergies Allergy Verified 08/02/24 11:19 Medications Home Medications Medication Instructions Recorded Confirmed Last Taken apixaban 5 mg tablet (Eliquis) 5 mg PO BID 01/25/24 08/02/24 03/14/24 21:00 calcium carbonate 600 mg PO QAM 01/25/24 08/02/24 Unknown inulin 2 gram chewable tablet 0 g PO DAILY 01/25/24 08/02/24 03/14/24 09:00 (Fiber Gummies) levothyroxine 88 mcg tablet 88 mcg PO QAM 01/25/24 08/02/24 03/17/24 09:00 paroxetine HCl 30 mg tablet 30 mg PO QAM 01/25/24 08/02/24 03/17/24 09:00 amoxicillin 500 mg tablet 2,000 mg PO UD PRN pre dental 08/02/24 08/02/24 Unknown Past Medical History Medical History (Updated 08/10/24 @ 09:08 by Noa Carranza) Anxiety History of pulmonary embolism (04/2023) Taking Eliquis Hypothyroid Obesity Osteoarthritis Exercise / Class Metabolic Activity III < 4 Walking/Shop/Light housework Past Family History Family History Other Heart disease Past Surgical History Surgical History (Updated 08/03/24 @ 14:49 by Noa Carranza) History of colonoscopy History of left knee replacement Left TKA (03/18/24): SAB, 2 attempts + regional at [facility] History of tubal ligation Past Anesthesia History No Hx of Anesthesia Complications and No Family Hx of Anesthesia Complications History of PONV No Hx of PONV and No Hx of Motion Sickness Social History Smoking Status: Never smoker Do You Dip or Chew Tobacco: No Hx Alcohol Use: No Hx Substance Use: No substance use type: does not use Review of Systems Patient denies chest pain, shortness of breath, fever, chills, cough, wheezing, palpitations. Physical Exam Vital Signs BP 105/67 P 71 TEMP 98.0 SP02 95%RA RESP 18 Physical Full cervical extension range of motion. Full TMJ range of motion. TMD 3 finger breaths Mallampati Score I Dentition: missing side, + cap Lungs: clear throughout to auscultation Cardiac: regular rate and rhythm, no murmurs noted Spine: normal Carotid arteries: negative bruit Extremities: no LE edema Lab Results Anesthesia Preop Results Results Anesthesia Widget: WBC 5.50 K/ul (4.8-10.8) 08/10/24 Hgb 13.0 g/dl (12.0-16.0) 08/10/24 Hct 39.8 % (37.0-47.0) 08/10/24 Plt 188 K/uL (130-400) 08/10/24 Na 141 mmol/L (136-145) 08/10/24 K 4.0 mmol/L (3.5-5.1) 08/10/24 Cl 109 mmol/L (98-107) H 08/10/24 CO2 25 mmol/L (21-32) 08/10/24 BUN 19 mg/dl (6-23) 08/10/24 Creat 0.72 mg/dl (0.6-1.2) 08/10/24 Glucose Level 85 mg/dl (70-99(Fasting)) 08/10/24 PT 11.0 Seconds (9.0-12.0) 08/10/24 PTT 27 Seconds (21-31) 08/10/24 INR 1.0 (0.9-1.1) 08/10/24 Blood Type A Positive 08/10/24 Antibody Screen NEGATIVE 08/10/24 Testing Electrocardiogram Date: 02/11/24 NSR at 69bpm. LAD. Low voltage QRS. NS ST/TWA. Chest X-Ray Date: 02/11/24 FINDINGS: No lines and tubes are seen. The cardiomediastinal silhouette is normal. The lungs are clear. No evidence of pleural effusion or pneumothorax. IMPRESSION: No acute chest disease. Echocardiogram Date: 11/18/23 LVEF 55-59%. LV wall motion is normal. Grade 1 diastolic dysfunction. Mild AV sclerosis. Mild MR/TR. Normal right atrial pressure of 3 mmHg. Estimated PASP 30 mmHg.
--- NOTE | 2024-08-25 07:03 | History & Physical Report ---
Date of Service August 25, 2024 Assessment & Plan (1) Osteoarthritis of left hip: We will proceed with a left anterior total hip arthroplasty. Postoperatively she will be started on Eliquis for DVT prophylaxis and kept overnight in the hospital for postop medical management. She plans to have the hospital set up home health for discharge. History of Present Illness Chief Complaint: Osteoarthritis of the left hip. Primary Care Provider: Self, Referred Georgiana is a pleasant 73-year-old female who has been dealing with chronic increasing left hip pain. I recently did a left knee replacement on her about 4 months ago and she has done very well with that. She isnow dealing with severe left hip pain. X-rays and clinical examination been diagnostic for advanced osteoarthritis of the left hip. After failing conservative treatment, she has elected to proceed with a left anterior total hip arthroplasty. Allergies Allergy/AdvReac Type Severity Reaction Status Date / Time No Known Allergies Allergy Verified 08/02/24 11:19 Home Medications Medication Instructions Recorded Confirmed Type apixaban 5 mg tablet (Eliquis) 5 mg PO BID 01/25/24 08/02/24 History calcium carbonate 600 mg PO QAM 01/25/24 08/02/24 History inulin 2 gram chewable tablet 0 g PO DAILY 01/25/24 08/02/24 History (Fiber Gummies) levothyroxine 88 mcg tablet 88 mcg PO QAM 01/25/24 08/02/24 History paroxetine HCl 30 mg tablet 30 mg PO QAM 01/25/24 08/02/24 History amoxicillin 500 mg tablet 2,000 mg PO UD PRN pre dental 08/02/24 08/02/24 History Past Med/Surg History Problem List Encounter for pre-operative examination Medical History Obesity History of pulmonary embolism (04/2023) Taking Eliquis Hypothyroid Anxiety Osteoarthritis Surgical History History of left knee replacement Left TKA (03/18/24): SAB, 2 attempts + regional at [facility] History of tubal ligation History of colonoscopy Family History Other Heart disease Social History Smoking Status: Never smoker Do You Dip or Chew Tobacco: No; Hx Alcohol Use: No Hx Substance Use: No Preferred Language: Romanian Communication Ability: Effective Pound Keeper Required: No Beliefs That Will Affect Care: None Current Living Situation: Spouse Current Living Situation Comment: and dogs Feels Safe at Home: Yes Assistive Devices: Glasses Review of Systems All systems reviewed & are unremarkable except as noted in HPI & below. Physical Exam On physical exam of the left hip, she has decreased range of motion. She has pain with forced internal/external rotation. Constitutional WD/WN, vitals as above Eyes PERRL, conjunctivae normal, anicteric sclerae ENMT external ear and nose normal, oropharynx normal Neck trachea midline, no thyromegaly Respiratory normal respiratory effort Cardiovascular RRR, no murmur, no edema Gastrointestinal (Abdomen) normal bowel sounds, soft, nontender, no hepatosplenomegaly Psychiatric A+Ox3, euthymic affect Results & Data Results & Data Laboratory Results . Diagnostic Findings X-rays of the left hip show advanced osteoarthritis with joint space narrowing, osteophyte formation, and pyny-fk-ithk articulation. . PG Care Time/CCT Total # of Minutes Spent Total Time Spent with Patient: Total time spent is greater than 50% in coordination of care (as documented) at patient's floor/unit and/or counseling patient: Coding Level of Care Code None Diagnoses Osteoarthritis of left hip M16.12
[2024-08-29] MEDS: LR 500ML BOLUS, THEN 15ML/HR IV SCH (06:02)
[2024-08-29] MEDS: ACETAMINOPHEN 500 MG TAB PO SCH ×2 (06:03→14:40)
[2024-08-29] MEDS: dexAMETHasone**PF** 10 MG/ML VIAL IV SCH (06:04)
[2024-08-29] MEDS: FAMOTIDINE 20 MG TAB PO SCH (06:04)
[2024-08-29] MEDS: GABAPENTIN 300 MG CAP PO SCH (06:06)
[2024-08-29] MEDS: LR 60ML/HR IV SCH (06:07)
[2024-08-29] MEDS ORDERED: fentaNYL citrate PF 100 MCG/2 ML VIAL ONE (06:22)
[2024-08-29] MEDS ORDERED: MIDAZOLAM HCL 1 MG/ML 2ML VIAL ONE (06:22)
[2024-08-29] MEDS ORDERED: BUPIVACAINE 0.5 % 5 MG/1 ML PF 10ML VIAL ONE (06:28)
--- NOTE | 2024-08-29 06:28 | History & Physical Bridge Note ---
Date of Service August 29, 2024 History & Physical Bridge Note I have examined the patient, reviewed the History & Physical and in the interval since the performance of the History & Physical I have noted the following changes of clinical significance: no changes noted
[2024-08-29] MEDS ORDERED: ONDANSETRON INJ 2 MG/ML 2 ML VIAL IV PRN ×2 (06:31→12:14)
[2024-08-29] MEDS ORDERED: ATROPINE SULFATE 0.1 MG/ML 10ML SYR IV PRN (06:31)
[2024-08-29] MEDS ORDERED: ePHEDrine sulfate 50 MG/ML AMP IV PRN (06:31)
[2024-08-29] MEDS ORDERED: fentaNYL citrate PF 100 MCG/2 ML VIAL IV PRN (06:31)
[2024-08-29] MEDS ORDERED: PROPOFOL IV EMULSION 10 MG/ML 20 ML VIAL IV ONE (06:38)
[2024-08-29] MEDS ORDERED: LIDOCAINE 2% 2 ML VIAL/AMP(20MG/ML) INFIL ONE (06:38)
[2024-08-29] MEDS: TRANEXAMIC ACID 1,000 MG **IV Pre-op IV SCH (06:39)
[2024-08-29] MEDS: ceFAZolin 2000MG 2,000 MG/15 ML SYR IV SCH ×2 (07:00→14:41)
[2024-08-29] MEDS ORDERED: PHENYLEPHRINE 100MCG/ML 5ML SYR ONE (07:29)
[2024-08-29] MEDS: ROPIV 0.5% 246mg, Ketorolac 30mg, EPINEPHrine 0.5mg in NSS INFIL SCH (07:34)
[2024-08-29] MEDS: ORTHO JOINT ANESTHETIC ONE (07:34)
[2024-08-29] MEDS ORDERED: PHENYLEPHRINE HCL 10 MG/ML VIAL ONE (07:44)
--- NOTE | 2024-08-29 08:02 | Operative Report ---
PG Post Operative Report Pre & Post Diagnosis Operation Date: 08/29/24 07:00 Pre-Op Diagnosis: Left Hip Arthritis Post-Op Diagnosis: Left Hip Arthritis I identified the patient and participated in the time-out.: Yes Procedure Operation Date: 08/29/24 07:00 Actual Procedures p Left Anterior Total Hip Arthroplasty(Left) - Julio Ibarra DO Surgeon Julio Ibarra DO Membership Administrator Bandar Saxena PA-C Estimated Blood Loss 150 Findings Consistent with Post-Op Diagnosis Specimens Left femoral head Description of Procedure Implants used I used a ZimmerBiomet total hip arthroplasty system with a size 3 standard offset Avenir Complete stem, a 52 mm G7 cup with a 25mm screw, an E1 polyethylene liner, a 36 mm ceramic head with a 0 neck. Georgiana arrived at the hospital for the above procedure. She was seen in the preoperative holding area and the operative extremity was identified and signed. She was given a spinal anesthetic, a preoperative antibiotic, and TXA. She was then taken back to the operating room and laid on the table in the supine position. She was given basic sedation. The operative leg was secured to a Puristst leg positioner. The hip was then prepped and draped in sterile fashion. A timeout was done and the patient and the operative extremity was properly identified. An anterior approach was used. Dissection was taken down through the fascia and the tensor muscle belly was retracted laterally and the rectus was retracted medially. The circumflex vessels were identified and ligated. The capsule was then incised and tagged for later repair. The femoral neck was then cut and the femoral head was removed. The acetabulum was exposed. Time was spent doing a complete circumferential labral release. Sequential reaming of the acetabulum up to a size 5152 reamer was done. Final reamings were done under fluoroscopy to ensure appropriate version. A Biomet mm G7 cup was then impacted into place. A single 25 mm screw was placed. The E1 polyethylene liner was then snapped into place. Surrounding soft tissues were then injected with 100 cc of an orthopedic pain control cocktail. The proximal femur was then exposed. Sequential broaching up to a size 3 broach was done. Off that broach a size 36 head with a 0 neck was trialed. The hip was reduced and fluoroscopic images showed anatomic alignment of the implants in acceptable length. The broach was removed. The final size 3 standard offset Avenir Complete stem was then impacted into place. A ceramic 36 mm head with a 0 neck was then impacted onto the stem and the hip was reduced. Final fluoroscopic images showed anatomic alignment of the hip. The capsule was then closed with #1 Vicryl suture. A dilute betadyne lavage was then done for 3 minutes. The joint was then irrigated with normal saline solution. The fascia was closed with #1 PDS suture. Skin was closed with 2-0 Vicryl, janneth, and a Silverlon dressing. She was then transferred to a hospital bed and taken to the post anesthesia care unit in stable condition. She tolerated the procedure well. Bandar Saxena PA-C, was present for the entire procedure. He was critical for patient positioning, prepping, draping, retraction exposure, wound closure and application of sterile dressing. I attest to the content of the Intraoperative Record and any orders documented therein. Any exceptions are noted below.
[2024-08-29] MEDS: TRANEXAMIC ACID 1,000 MG **IV Intra-op IV SCH (08:06)
--- NOTE | 2024-08-29 11:24 | Fluoroscopy Report ---
FL hip LT 1V CLINICAL HISTORY: LEFT ANT HIP COMPARISON STUDY: 07/20/2024 FLUOROSCOPY TIME: 13 seconds FLUOROSCOPY IMAGES: 2 FINDINGS: Interval left hip prosthesis shows no hardware complication. There is expected soft tissue gas. IMPRESSION: Unremarkable intraoperative fluoroscopy. ACT 112: Negative or not required by law. Electronically signed by: Hi Bradford 08/29/2024 11:23 AM
--- NOTE | 2024-08-29 11:25 | XRay Report ---
XR hip 1V LT w pelvis CLINICAL HISTORY: IN PACU - Post Surgical COMPARISON: 07/20/2024 FINDINGS: Interval left hip prosthesis shows no hardware complication. There is expected soft tissue gas. Skin janneth are present. IMPRESSION: Unremarkable postoperative exam. ACT 112: Negative or not required by law. Electronically signed by: Hi Bradford 08/29/2024 11:24 AM
--- NOTE | 2024-08-29 11:42 | Anesthesiology Progress Note ---
Date of Service August 29, 2024 Anesthesia Post Procedure Vital Signs Vital Signs: Temp Pulse Resp BP Pulse Ox O2 Del Method O2 Flow Rate 08/29/24 11:30 68 15 100/59 L 95 Nasal Cannula 3 08/29/24 11:15 65 17 105/56 L 95 Nasal Cannula 3 08/29/24 11:05 70 14 102/60 97 Nasal Cannula 3 08/29/24 10:55 59 L 16 90/54 L 93 Nasal Cannula 3 08/29/24 10:45 59 L 14 101/39 L 92 Nasal Cannula 2 08/29/24 10:35 97.5 F L 62 14 96/56 L 93 Nasal Cannula 2 08/29/24 10:25 63 15 94/63 L 94 Nasal Cannula 2 08/29/24 10:15 66 12 103/53 L 95 Nasal Cannula 2 08/29/24 10:05 69 13 106/58 L 96 Nasal Cannula 2 08/29/24 09:55 68 15 98/56 L 95 Nasal Cannula 2 08/29/24 09:45 63 15 103/56 L 95 Nasal Cannula 2 08/29/24 09:35 63 16 91/48 L 97 Nasal Cannula 2 08/29/24 09:25 64 16 100/51 L 97 Nasal Cannula 2 08/29/24 09:15 68 15 97/41 L 95 Nasal Cannula 2 08/29/24 09:05 69 19 94/54 L 96 Nasal Cannula 3 08/29/24 08:55 66 15 102/53 L 99 Nasal Cannula 3 08/29/24 08:45 68 18 96/50 L 97 Oxymask 10 08/29/24 08:35 59 L 14 105/54 L 97 Oxymask 12 08/29/24 08:25 96.8 F L 70 18 76/52 L 90 Oxymask 12 08/29/24 05:47 98.2 F 80 18 126/95 96 Room Air Transfer of Care Handoff Completed per policy Notes Mental Status: alert / awake / arousable and participated in evaluation Patient Amnestic to Procedure: Yes Nausea / Vomiting: adequately controlled Pain: adequately controlled Airway Patency, RR, SpO2: stable & adequate BP & HR: stable & adequate Hydration State: stable & adequate Neuraxial Anesthesia: was administered and sensory block is resolving Anesthetic Complications: no major complications apparent and Pt Satisfied with anesthetic care
[2024-08-29] MEDS ORDERED: traMADol HCL 50 MG TABLET PO PRN (12:14)
[2024-08-29] MEDS ORDERED: bisacodyL 10 MG SUPP PR PRN (12:14)
[2024-08-29] MEDS ORDERED: MAGNESIUM HYDROXIDE SUSP 30 ML UDC PO PRN (12:14)
[2024-08-29] MEDS ORDERED: HYDROmorphone INJ 0.5 MG/0.5 ML SYR IV PRN (12:14)
[2024-08-29] MEDS ORDERED: METOCLOPRAMIDE HCL INJ 5 MG/ML 2 ML VIAL IV PRN (12:14)
[2024-08-29] MEDS ORDERED: NON-FORMULARY MEDICATION (Amoxicillin 500 mg tablet) PO PRN (12:14)
[2024-08-29] MEDS ORDERED: oxyCODONE HCL IR 5 MG TAB (IMMEDIATE RELEASE) PO PRN (12:14)
[2024-08-29] MEDS ORDERED: NALOXONE HCL 0.4 MG/1 ML VIAL/CARP IV PRN (12:14)
[2024-08-29] MEDS: MULTIVITAMIN TAB PO SCH (13:13)
[2024-08-29] MEDS: LEVOTHYROXINE SODIUM 88 MCG TABLET PO SCH (13:14)
[2024-08-29] MEDS: PARoxetine HCL 20 MG TAB PO SCH (14:41)
[2024-08-29] MEDS: DOCUSATE SODIUM 100 MG CAP PO SCH (14:41)
[2024-08-29] MEDS: SENNA 8.6 MG TAB PO SCH (20:03)
[2024-08-30 07:15] VITALS: BP 111/65; PULSE 74; RESP 16; TEMP 98.4; O2SAT 94
[2024-08-30] MEDS: CALCIUM CARBONATE 1250MG TAB PO SCH (08:02)
[2024-08-30] MEDS: APIXABAN 5 MG TABLET PO SCH (08:03)
--- NOTE | 2024-08-30 10:08 | Orthopedic Progress Note ---
Date of Service August 30, 2024 Assessment & Plan (1) Status post left hip replacement: Assessment: Status post left anterior total hip arthroplasty. Plan: Overall, she is doing quite well today with good pain control to the left hip. She will work physical therapy this morning to work on ambulation and rang e of motion exercises. Her dressing will remain in place for 7 days. She was restarted on her Eliquis for DVT prophylaxis. She can be discharged later this morning pending formal physical therapy evaluation and recommendations. She will follow-up in 2 weeks with orthopedics for continued postoperative management or sooner if needed. She verbalized understanding and agrees with this plan. Subjective . Georgiana was seen and evaluated this morning resting comfortably in no apparent distress. She denies any concerns today over the left hip surgical incision site. She has been up and out of bed with no significant issues. She has yet to work with physical therapy today. She denies any concerns with her surgical incision site. She denies any active bleeding, discharge, or signs infection. She denies any low back pain, distal extremity pain, numbness/ting, or paresthesias. She denies any other concerns today. Review of Systems All systems reviewed & are unremarkable except as noted in HPI & below. Physical Exam . Focused exam of the left hip shows dressing in place with no signs of active bleeding, discharge, or signs of infection. No tenderness to palpation. Limited range of motion and strength due to subjective discomfort. Intact plantarflexion and dorsiflexion of the left ankle. Calf soft nontender to palpation. Negative Homans' sign. +2 DP and PT pulses. Less than 2-second capillary refill. Normal sensation. Neurovascular intact. Results & Data Results & Data Laboratory Results . Diagnostic Findings . PG Care Time/CCT Total # of Minutes Spent Total Time Spent with Patient: Total time spent is greater than 50% in coordination of care (as documented) at patient's floor/unit and/or counseling patient: Coding Level of Care Code 25568 Post Operative Follow-Up Diagnoses Status post left hip replacement Z96.642
--- NOTE | 2024-08-30 10:09 | Discharge Summary ---
Date of Service August 30, 2024 Admission HPI (Per Admitting) Georgiana is a pleasant 73-year-old female who has been dealing with chronic increasing left hip pain. I recently did a left knee replacement on her about 4 months ago and she has done very well with that. She isnow dealing with severe left hip pain. X-rays and clinical examination been diagnostic for advanced osteoarthritis of the left hip. After failing conservative treatment, she has elected to proceed with a left anterior total hip arthroplasty. Admission Exam (Per Admitting) On physical exam of the left hip, she has decreased range of motion. She has pain with forced internal/external rotation. Principal Diagnosis Same as "Discharge Diagnosis" noted below under Discharge Instructions. Discharge Exam . Focused exam of the left hip shows dressing in place with no signs of active bleeding, discharge, or signs of infection. No tenderness to palpation. Limited range of motion and strength due to subjective discomfort. Intact plantarflexion and dorsiflexion of the left ankle. Calf soft nontender to palpation. Negative Homans' sign. +2 DP and PT pulses. Less than 2-second capillary refill. Normal sensation. Neurovascular intact. Discharge Data Procedures Performed Operation Date: 08/29/24 07:00 Actual Procedures p Left Anterior Total Hip Arthroplasty(Left) - Julio Ibarra, Ordered Studies 08/29/24 07:00 FL hip LT 1V Routine Hospital Course (1) Status post left hip replacement: On 08/29/2024, Georgiana arrived at [facility] and underwent a left anterior total hip arthroplasty performed by Dr. Ibarra with no complications. She had a spinal anesthetic. Postoperatively, she was transferred to the PACU for immediate postoperative management and then to the general orthopedic floor in stable condition. Her hospital course was uneventful. On postoperative day #1, her vital signs are stable and her pain is well-controlled. She was restarted on her Eliquis for DVT prophylaxis. She worked with physical therapy and Occupational Therapy working on ambulation and range of motion exercises. She was then discharged home in stable condition. She will follow-up with orthopedics in 2 weeks for continued postoperative management or sooner if needed. PG Care Time/CCT Total # of Minutes Spent Total Time Spent with Patient: Total time spent is greater than 50% in coordination of care (as documented) at patient's floor/unit and/or counseling patient: Discharge Plan Discharge Items Patient Disposition: Home - Home Health Services Reason For Visit: Left Hip Arthritis Discharge Diagnosis: Status Post Left EKN Activity: Per Instructions section Non-emergency contact: Surgeon Call non-emergency contact if: your temperature is above 101.5, your wound has increased redness, your wound has increased drainage and your wound pain has increased Follow-up/Referrals: Carmen Corrales PA-C [Primary Care Provider] - Diet: Regular Addtl Attending Provider Instructions: Activity and Therapy Recommendations: * If you are using [facility] then therapy will be provided at your home until they feel you have accomplished all of your goals. * If you are using [facility] then Physical Therapy will be provided until they feel you are ready to start Outpatient Physical Therapy. * If you are not using home therapy then Outpatient Physical Therapy should start about 3-5 days from your day of surgery. Therapy will last about 6-10 weeks * You were shown a series of exercises in the hospital. Do these exercises three times each day including the exercises you were shown in physical therapy. * Get up and walk several times each day.~ For the first four weeks, try not to stand or walk for more than one hour at a time. If you do stand or walk for more than one hour, you will not hurt anything, but your leg will likely swell.~~ * As you feel comfortable, you may change from the walker or crutches to a cane and~then to independent walking. Medications: * Narcotic You will likely be sent home from the hospital with a prescription for the narcotic pain medication that worked best throughout your stay. * Cefadroxil -take the antibiotic twice a day for 10 days to help prevent infection. * Aspirin Most patients will be required to take Aspirin 81mg twice a day for 6 weeks after surgery. This is obtained [id number] and a prescription is not necessary. * Other medications may be prescribed for specific circumstances. If you have any questions, please call the office at . * Resume previous home medications unless otherwise instructed TEDs/Elastic Stockings: The white elastic stockings help limit swelling and prevent blood clots from forming in your legs. The more you wear them, the more they work. Wear them for six weeks. Dressing Care: Leave the Silverlon dressing in place for 7 days. After 7 days you may remove the dressing. If the incision is not draining then you may leave the janneth open to air. If there is a little bit of drainage or if the janneth are getting stuck on your clothing then cover the incision with a dry dressing. The janneth will be removed at your 2 week follow-up appointment. Showering: You may shower with the Silverlon dressing in place. Do not let the shower spray hit the dressing directly. Pat the Silverlon dressing dry. If the dressing becomes wet underneath, then simply remove the dressing. Keep the incision dry until you are 7 days out from the day of surgery. After 7 days you may remove the Silverlon dressing and shower with the janneth exposed. Let soapy water run over the janneth and pat them dry. Do not scrub or soak the incision. Diet: You may resume your previous diet. Things To Watch For: * Drainage from the incision site that occurs more than one week after your surgery. * Increased redness at the incision site. * Fever above 102 degrees Fahrenheit. * Unusual chest pain or shortness of breath. * Call [facility] at with any of the above problems Follow-Up Visit: Follow-up with Dr. Ibarra's office 2-3 weeks after your day of surgery. We will remove your janneth and answer any questions. If you have any additional questions or concerns, Dr Ibarra is usually in the office at the same time and will be available An appointment was probably scheduled when you signed-up for surgery in the office. If you have any questions call Office Instructions: More detailed instructions as well as Frequently Asked Questions were provided in a folder by our office when you signed-up for surgery. Please review these instructions when you get home. If you have any further questions or concerns, please feel free to call the office at [phone] Pending Studies at Discharge: No Stand-Alone Forms: [facility], Smoking Cessation Medications and DC Order Prescriptions: New cefadroxil 500 mg capsule 500 mg PO BID 10 Days Qty: 20 0RF oxycodone 5 mg tablet 5 mg PO Q6H PRN (Reason: pain) Qty: 30 0RF Continued amoxicillin 500 mg tablet 2,000 mg PO UD PRN (Reason: pre dental) Patient Comments: last jun 2024 for dentist yessenia Rx Instructions: 4 tabs 1 hour prior to procedure Eliquis 5 mg Tablet 5 mg PO BID levothyroxine 88 mcg Tablet 88 mcg PO QAM calcium carbonate 600 mg calcium (1,500 mg) Tablet 600 mg PO QAM paroxetine HCl 30 mg Tablet 30 mg PO QAM Fiber Gummies 2 gram Tablet,Chewable 0 g PO DAILY Admission Data Admit Date/Time: 08/29/24 08:30 Attending Provider: Julio Ibarra Admit Provider: Julio Ibarra Primary Care Provider: Carmen Corrales Other Providers: [facility],Home Healthcare Other Interventions: Discharge Summary Assessment (RN) Last Done: 08/30/24 09:34
== END 2024-08-30 11:59 | disposition home health service (06) ==
LOC: ASU 05:04 → 3E 05:04
DX: Z79.01 Long term (current) use of anticoagulants; M16.12 Unilateral primary osteoarthritis, left hip; Z79.890 Hormone replacement therapy; E03.9 Hypothyroidism, unspecified; E66.9 Obesity, unspecified; Z68.33 Body mass index [BMI] 33.0-33.9, adult; Z79.899 Other long term (current) drug therapy